=== PATIENT | female | born 1955 | race Caucasian/White ===

== ENCOUNTER 2021-10-20 13:58 | Emergency (ER) | payer OTHER ==
[2021-10-20 14:05] VITALS: BP 142/76; PULSE 90; TEMP 98.3; BMI 27.1
[2021-10-20] MEDS ORDERED: ACETAMINOPHEN 500 MG TABLET (FP) PO ONE (15:42)
[2021-10-20] MEDS ORDERED: IBUPROFEN 600 MG TABLET (FP) PO ONE ×2 (15:42→15:48)
[2021-10-20] MEDS ORDERED: ACETAMINOPHEN 500 MG TABLET (FP) ONE (15:48)
== END 2021-10-20 16:01 | disposition home or self-care (01) ==
LOC: JER 13:58
DX: J06.9 Acute upper respiratory infection, unspecified (principal)
CPT/HCPCS: 0241U-QW; 99283-25